=== PATIENT | male | born 1980 | race African-American/Black ===

== ENCOUNTER 2018-02-12 10:52 | Emergency (ER) | payer OTHER ==
[2018-02-12 10:57] VITALS: BP 119/71; PULSE 74; TEMP 99; BMI 15.8
[2018-02-12] MEDS ORDERED: ACETAMINOPHEN 500 MG TABLET (FP) PO ONE (11:13)
[2018-02-12] MEDS ORDERED: ACETAMINOPHEN 500 MG TABLET (FP) ONE (11:18)
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
== END 2018-02-12 12:00 | disposition home or self-care (01) ==
LOC: FER 10:52
DX: Z04.1 Encounter for examination and observation following transport accident (principal); V43.52XA Car driver injured in collision with other type car in traffic accident, initial encounter; Y93.89 Activity, other specified; Y92.410 Unspecified street and highway as the place of occurrence of the external cause
CPT/HCPCS: 70450-TC; 99282-25